=== PATIENT | male | born 1955 | race Caucasian/White ===

== ENCOUNTER → 2016-08-20 | Outpatient (CLI) | payer MEDICAID ==
[2016-08-20 07:42] LABS: Basophils % (A) 1 %; CH 29.8; CHCM 32.4; Eosinophils # (A) 0.2 k/uL (0-0.7); Eosinophils % (A) 3 %; HCT 42.5 % (39.0-53.0); HDW 2.25; HGB 13.6 gm/dL (13.0-17.5); Luc # (Auto) 0.16; Luc % (Auto) 3; Lymphocytes # (A) 1.4 k/uL (1.0-4.8); Lymphocytes % (A) 22 %; MCH 29.7 pg (25.0-35.0); MCHC 32.1 g/dL (31.0-37.0); MCV 92.4 fL (80.0-100.0); Mean Platelet Volume 6.3; Monocytes # (A) 0.4 k/uL (0-1.0); Monocytes % (A) 7 %; Neutrophils # (A) 4.2 k/uL (1.3-7.7); Neutrophils % (A) 66 %; RDW 13.4 % (11.5-15.5); WBC 6.3 k/uL (3.8-10.6); WBC (Perox) 6.84
[2016-08-20 07:51] LABS: ALT 38 U/L (21-72); AST 23 U/L (17-59); Alkaline Phosphatase 102 U/L (38-126); Anion Gap 6 mmol/L; Blood Urea Nitrogen 22 mg/dL (9-20); Carbon Dioxide 30 mmol/L (22-30); Chloride 104 mmol/L (98-107); Cholesterol 158 mg/dL (<200); Glucose 148 mg/dL (74-99); HDL Cholesterol 42 mg/dL (40-60); Non-African American GFR(MDRD) >60 (>60 ml/min/1.73 sqM); Potassium 4.6 mmol/L (3.5-5.1); Sodium 140 mmol/L (137-145); Total Bilirubin 0.4 mg/dL (0.2-1.3); Total Protein 6.7 g/dL (6.3-8.2); Triglycerides 86 mg/dL (<150)
[2016-08-20 08:39] LABS: Hepatitis C Virus IgG Ab Negative (Negative); Hepatitis C Virus IgG Index 0.08
== END | disposition home or self-care (01) ==
LOC: LABWHC1 06:53
PROVIDERS: ATTEND Internal Medicine
DX: E78.5 Hyperlipidemia, unspecified (principal); E11.9 Type 2 diabetes mellitus without complications; Z13.9 Encounter for screening, unspecified
CPT/HCPCS: 36415; 80053; 80061; 85025; 86803

== ENCOUNTER → 2017-04-01 | Outpatient (CLI) | payer MEDICAID ==
[2017-04-01 07:56] LABS: Blood Urea Nitrogen 31 mg/dL (9-20)
== END | disposition home or self-care (01) ==
LOC: LABWHC1 06:34
PROVIDERS: ATTEND Nurse Practitioner Family
DX: Z01.812 Encounter for preprocedural laboratory examination (principal); H93.19 Tinnitus, unspecified ear; H91.90 Unspecified hearing loss, unspecified ear
CPT/HCPCS: 36415; 82565; 84520

== ENCOUNTER → 2017-04-02 | Outpatient (CLI) | payer MEDICAID ==
--- NOTE | 2017-04-02 08:07 | MR ---
EXAMINATION TYPE: MR brain and iac wo/w con DATE OF EXAM: 04/02/2017 7:57 AM COMPARISON: NONE HISTORY: Tinnitus. TECHNIQUE: Multiplanar, multiecho imaging of the brain was obtained with and without intravenous adm inistration of 9 mL intravenous Gadavist. FINDINGS: Midline structures are unremarkable. There is a normal craniocervical junction. Echoplanar diffusion imaging is normal. There are normal vascular flow voids. The orbits appear normal. High-resolution imaging through the posterior fossa exquisitely demonstrates the seventh 8th nerve co mplex without evidence of a CP angle mass lesion or intracanalicular acoustic schwannoma. There are scattered high signal lesions throughout the deep white matter tracts and subcortical white matter of both cerebral hemispheres, slightly greater on the right than the left. These number over 20. The largest lesion is in the subcortical white matter of the waddell radiata on the right and jose ures 7.2 mm. There is no mass effect, midline shift or intracranial blood. Following intravenous administration of gadolinium, I do not see evidence of abnormal enhancement. Sp ecifically, I do not see evidence of abnormal enhancement in the internal auditory canals. IMPRESSION: 1. NO EVIDENCE OF A CP ANGLE MASS LESION OR INTRACANALICULAR ACOUSTIC SCHWANNOMA. 2. NUMEROUS SUBCORTICAL AND DEEP WHITE MATTER FLAIR LESIONS. THESE ARE NONSPECIFIC. A DIFFERENTIAL DI AGNOSIS INCLUDES DEMYELINATION, SMALL VESSEL DISEASE, MIGRAINE HEADACHES, HYPERTENSION AND LYME'S DIS EASE.
== END | disposition home or self-care (01) ==
LOC: RADMRIMAIN 07:07
PROVIDERS: ATTEND Otolaryngology
DX: H93.19 Tinnitus, unspecified ear (principal); G93.9 Disorder of brain, unspecified; H90.42 Sensorineural hearing loss, unilateral, left ear, with unrestricted hearing on the contralateral side
CPT/HCPCS: 70553; A9581

== ENCOUNTER → 2017-04-27 | Outpatient (CLI) | payer MEDICAID ==
[2017-04-27 07:57] LABS: Partial Thromboplastin Time 25.5 sec (22.0-30.0); Prothrombin Time 9.9 sec (9.0-12.0)
[2017-04-27 12:16] LABS: Cardiolipin Ab IgG Interp NEGATIVE (NEGATIVE); Cardiolipin IgA Antibody <0.5 U/mL
[2017-04-27 12:18] LABS: Cardiolipin Ab IgM Interp NEGATIVE (NEGATIVE)
[2017-04-28 12:03] LABS: APTT 48 Sec(s) (<43); APTT 1:1 Mix 41 Sec(s) (<43); Dilute Russell Viper Venom 42 Sec(s) (<44)
[2017-04-29 09:29] LABS: Lyme IgG/IgM 0.1 Index
== END | disposition home or self-care (01) ==
LOC: LABWHC1 07:00
PROVIDERS: ATTEND Psychiatry & Neurology Neurology
DX: I63.9 Cerebral infarction, unspecified (principal)
CPT/HCPCS: 36415; 83090; 84439; 84443; 85610; 85613; 85652; 85730; 85732; 86038; 86147; 86618

== ENCOUNTER → 2017-05-09 | Outpatient (CLI) | payer MEDICAID ==
--- NOTE | 2017-05-09 11:05 | MR ---
EXAMINATION TYPE: MR angio head wo/neck wo/w con DATE OF EXAM: 05/09/2017 COMPARISON: 07/29/2015 and 04/02/2016 HISTORY: Cerebral aneurysm, nonruptured, stroke TECHNIQUE: Time of flight images focusing on the Andreafski of [place] were performed without contrast.. 2-D and 3-D postprocessing imaging is performed. FINDINGS: 1. The previously questioned small aneurysm at the bifurcation the left MCA is not evident on today's examination and likely represented and acute angle of the bifurcation with tortuous vasculature. Cir henna of [place] is intact incomplete. Right vertebral artery is dominant. No evidence of arteriovenous fistula or developmental venous abnormality is identified. There is redemonstration of a small right anterior middle cranial fossa structure appearing cystic on the prior CT and likely representing a sm all arachnoid cyst. This is a benign finding. The carotid arteries demonstrate no evidence of hemodynamically significant stenosis within either co mmon carotid artery, visualized external carotid artery, or internal carotid artery. No evidence of v ascular occlusion or dissection is seen. There is a normal branch pattern of the great vessels from t he aortic arch. Vertebral arteries are patent. IMPRESSION: No evidence of vascular occlusion, hemodynamically significant stenosis, or aneurysm with in the head or neck. The previously questioned left MCA trifurcation small aneurysm likely relates to tortuosity of the vasculature and acute angles.
== END | disposition home or self-care (01) ==
LOC: RADMRIMAIN 09:34
PROVIDERS: ATTEND Psychiatry & Neurology Neurology
DX: I67.1 Cerebral aneurysm, nonruptured (principal); I63.30 Cerebral infarction due to thrombosis of unspecified cerebral artery; R93.8 Abnormal findings on diagnostic imaging of other specified body structures
CPT/HCPCS: 70544; 70549; A9581

== ENCOUNTER → 2019-08-30 | Outpatient (CLI) | payer MEDICARE ==
[2019-08-30 08:45] LABS: Basophils % (A) 0 %; Eosinophils # (A) 0.2 k/uL (0-0.7); Eosinophils % (A) 3 %; HCT 43.1 % (39.0-53.0); HGB 14.1 gm/dL (13.0-17.5); Lymphocytes # (A) 1.7 k/uL (1.0-4.8); Lymphocytes % (A) 20 %; MCH 30.3 pg (25.0-35.0); MCHC 32.7 g/dL (31.0-37.0); MCV 92.6 fL (80.0-100.0); Mean Platelet Volume 6.8; Monocytes # (A) 0.5 k/uL (0-1.0); Monocytes % (A) 5 %; Neutrophils # (A) 5.9 k/uL (1.3-7.7); Neutrophils % (A) 69 %; Platelet Count 279 k/uL (150-450); RBC 4.65 m/uL (4.30-5.90); RDW 12.8 % (11.5-15.5); WBC 8.6 k/uL (3.8-10.6)
[2019-08-30 08:58] LABS: Appearance,Urine Clear (Clear); Bilirubin,Urine Negative (Negative); Blood,Urine Negative (Negative); Color,Urine Yellow; Glucose,Urine (UA) 2+ (Negative); Ketones,Urine Negative (Negative); Leukocyte Esterase,Urine Negative (Negative); Nitrite,Urine Negative (Negative); PH, Urine 5.5 (5.0-8.0); Protein,Urine Trace (Negative); Specific Gravity,Urine 1.027 (1.001-1.035); Urobilinogen,Urine <2.0 mg/dL (<2.0)
[2019-08-30 16:48] LABS: African American GFR (CKD) 109.4 (60.0-200.0); Albumin 4.6 g/dL (3.80-4.90); Albumin/Globulin Ratio 2.42 (1.60-3.17); Calcium 9.6 mg/dL (8.7-10.3); Chol/HDL Ratio 4.13; Globulin 1.9 g/dL (1.6-3.3); Non-African American GFR(CKD) 94.4 (60.0-200.0); Potassium 5.2 mmol/L (3.5-5.5); Total Bilirubin 0.3 mg/dL (0.2-1.2); Total Protein 6.5 g/dL (6.2-8.2)
[2019-08-30 17:36] LABS: Hemoglobin A1C 7.7 % (4.0-6.0)
[2019-08-30 18:53] LABS: Urine Creatinine 110.3 mg/dL
== END | disposition home or self-care (01) ==
LOC: LABWHC1 07:33
PROVIDERS: ATTEND Internal Medicine
DX: E55.9 Vitamin D deficiency, unspecified (principal); Z12.5 Encounter for screening for malignant neoplasm of prostate; E11.9 Type 2 diabetes mellitus without complications; E78.5 Hyperlipidemia, unspecified
CPT/HCPCS: 36415; 80053; 80061; 81003; 82043; 82306; 82570; 83036; 84153; 85025

== ENCOUNTER → 2019-10-19 | Outpatient (CLI) | payer MEDICARE ==
--- NOTE | 2019-10-19 13:24 | US ---
EXAMINATION TYPE: US groin RT DATE OF EXAM: 10/19/2019 COMPARISON: NONE CLINICAL HISTORY: K40.90 Unilateral ingunal hernia without obstruction or gang. No ultrasound evidence of hernia by today's study. IMPRESSION: No visible hernias seen at this time.
--- NOTE | 2019-10-24 13:35 | P.ARTDOP ---
Arterial Doppler LOWER EXTREMITY ARTERIAL DOPPLER: DATE OF SERVICE: 10/16/2019 Reason for study: Leg cramping. Doppler waveforms: Multiphasic bilaterally throughout. Pulse volume recording: []. Pressure gradients: None. Ankle-brachial indices: Greater than 1 bilaterally. Toe brachial indices: 0.78 on the right, 0.77 on the left Impression: Normal study.
== END | disposition home or self-care (01) ==
LOC: RADUSWWP 12:15
PROVIDERS: ATTEND Family Medicine
DX: I73.9 Peripheral vascular disease, unspecified (principal); K40.90 Unilateral inguinal hernia, without obstruction or gangrene, not specified as recurrent
CPT/HCPCS: 93922

== ENCOUNTER → 2020-07-29 | Outpatient (CLI) | payer MEDICARE ==
[2020-07-29 16:02] LABS: Basophils # (A) 0.05 X 10*3/uL (0.00-0.10); Basophils % (A) 0.6 %; Eosinophils # (A) 0.23 X 10*3/uL (0.04-0.35); Eosinophils % (A) 2.8 %; HCT 46.2 % (39.6-50.0); HGB 14.4 g/dL (13.0-17.0); Lymphocytes # (A) 1.91 X 10*3/uL (0.90-5.00); Lymphocytes % (A) 23.4 %; MCH 28.6 pg (27.0-32.0); MCHC 31.2 g/dL (32.0-37.0); MCV 91.7 fL (80.0-97.0); Mean Platelet Volume 9.4 fL (9.5-12.2); Monocytes # (A) 0.69 X 10*3/uL (0.20-1.00); Monocytes % (A) 8.5 %; Neutrophils # (A) 5.25 X 10*3/uL (1.80-7.70); Neutrophils % (A) 64.5 %; Platelet Count 316 X 10*3/uL (140-440); RBC 5.04 X 10*6/uL (4.40-5.60); RDW 13.9 % (11.5-14.5); WBC 8.15 X 10*3/uL (4.50-10.00)
[2020-07-29 20:00] LABS: African American GFR (CKD) 108.6 (60.0-200.0); Albumin 4.7 g/dL (3.80-4.90); Albumin/Globulin Ratio 1.96 (1.60-3.17); Anion Gap 9.8 mmol/L (4.00-12.00); BUN/Creat Ratio 38.75 Ratio (12.00-20.00); Calcium 9.3 mg/dL (8.7-10.3); Carbon Dioxide 25.2 mmol/L (21.6-31.8); Chol/HDL Ratio 4.02; Globulin 2.4 g/dL (1.6-3.3); Non-African American GFR(CKD) 93.7 (60.0-200.0); Potassium 5.3 mmol/L (3.5-5.5); Total Bilirubin 0.4 mg/dL (0.2-1.2); Total Protein 7.1 g/dL (6.2-8.2)
[2020-07-29 20:08] LABS: PSA Annual Screen 0.7 ng/mL (0.0-4.0)
== END | disposition home or self-care (01) ==
LOC: LABWHC1 08:40
PROVIDERS: ATTEND Family Medicine
DX: Z12.5 Encounter for screening for malignant neoplasm of prostate (principal); E78.5 Hyperlipidemia, unspecified
CPT/HCPCS: 80061; 80053; 82550; 85025; 36415; G0103

== ENCOUNTER → 2021-03-02 | Outpatient (CLI) | payer MEDICARE ==
--- NOTE | 2021-03-02 12:32 | XR ---
Right foot HISTORY: R22.41 M67.471 Mass Right lateral dorsal,foot 3 views of the right foot Question some soft tissue prominence over the proximal fifth metatarsal region. There is hallux valgu s deformity, osteopenia arthritic change at the first digit. Some cystic lucency present at the proxi mal third and fourth metatarsal is questioned. Second and third digits are flexed. Correlate clinical ly. There is a small plantar calcaneal spur. Atherosclerotic vascular calcifications present. There i s spurring at the tibiotalar joint. IMPRESSION: Osteophytic changes, nonspecific findings described above. Plantar calcaneal spur. MRI ma y be of benefit as indicated.
== END | disposition home or self-care (01) ==
LOC: RADXRMAIN 10:23
PROVIDERS: ATTEND Podiatrist Foot Surgery
DX: M77.31 Calcaneal spur, right foot (principal); M25.774 Osteophyte, right foot

== ENCOUNTER → 2021-08-07 | Outpatient (CLI) | payer MEDICARE ==
[~2021-08-07] MED LIST: BEBTELOVIMAB (EUA) 175 MG/2 ML VIAL IV NR; SODIUM CHLORIDE 0.9% 500 ML 500 ML in EMPTY BAG 1 BAG IV PRN
[2021-08-07 13:48] VITALS: TEMP 98.3
[2021-08-07 14:02] VITALS: BP 112/56; PULSE 70; RESP 16
== END ==
LOC: PROCWHC3 12:54
PROVIDERS: ATTEND Nurse Practitioner Adult Health
DX: U07.1 COVID-19 (principal); E66.9 Obesity, unspecified; E11.9 Type 2 diabetes mellitus without complications; Z68.27 Body mass index [BMI] 27.0-27.9, adult; Z88.5 Allergy status to narcotic agent
CPT/HCPCS: Q0222; M0222; 96374

== ENCOUNTER → 2021-08-26 | Outpatient (CLI) | payer MEDICARE ==
[2021-08-26 14:30] LABS: Basophils # (A) 0.04 X 10*3/uL (0.00-0.10); Basophils % (A) 0.6 %; Eosinophils # (A) 0.15 X 10*3/uL (0.04-0.35); Eosinophils % (A) 2.2 %; HCT 40.7 % (39.6-50.0); HGB 12.8 g/dL (13.0-17.0); Immature Grans, Automated 0.7 %; Lymphocytes % (A) 26.9 %; MCHC 31.4 g/dL (32.0-37.0); MCV 92.3 fL (80.0-97.0); Mean Platelet Volume 9.4 fL (9.5-12.2); Monocytes # (A) 0.53 X 10*3/uL (0.20-1.00); Monocytes % (A) 7.9 %; NRBC Per 100 WBC 0 /100 WBCS (0.0-0.0); Neutrophils # (A) 4.11 X 10*3/uL (1.80-7.70); Neutrophils % (A) 61.7 %; Platelet Count 248 X 10*3/uL (140-440); RBC 4.41 X 10*6/uL (4.40-5.60); RDW 13.2 % (11.5-14.5); WBC 6.68 X 10*3/uL (4.50-10.00)
[2021-08-26 15:29] LABS: ALT 30 U/L (10-49); AST 20 U/L (14-35); African American GFR (CKD) 119.7 (60.0-200.0); Albumin 4.1 g/dL (3.8-4.9); Albumin/Globulin Ratio 1.75 (1.60-3.17); Alkaline Phosphatase 102 U/L (41-126); BUN/Creat Ratio 30.55 Ratio (12.00-20.00); Calcium 9.1 mg/dL (8.7-10.3); Carbon Dioxide 27.3 mmol/L (20.0-27.5); Chloride 100 mmol/L (96-109); Chol/HDL Ratio 4.22 Ratio; Creatine Kinase 52 U/L (35-257); Globulin 2.3 g/dL (1.6-3.3); Glucose 209 mg/dL (70-110); LDL Cholesterol,Calculated 148.4 mg/dL (0.0-131.0); Non-African American GFR(CKD) 103.2 (60.0-200.0); Potassium 5.2 mmol/L (3.5-5.5); Sodium 144 mmol/L (135-145); Total Protein 6.4 g/dL (6.2-8.2)
== END | disposition home or self-care (01) ==
LOC: LABWHC1 09:31
PROVIDERS: ATTEND Nurse Practitioner Adult Health
DX: Z12.5 Encounter for screening for malignant neoplasm of prostate (principal); E78.5 Hyperlipidemia, unspecified
CPT/HCPCS: 36415; 80053; 80061; 82550; 84153; 85025

== ENCOUNTER → 2022-02-01 | Outpatient (CLI) | payer MEDICARE ==
--- NOTE | 2022-02-01 07:29 | US ---
EXAMINATION TYPE: US duplex aorta DATE OF EXAM: 02/01/2022 COMPARISON: NONE CLINICAL HISTORY: Z13.6 ENCOUNTER FOR SCREENING FOR CARDIOVASCULAR D. TECHNIQUE: Multiple sonographic images of the abdominal aorta are obtained. FINDINGS: EXAM MEASUREMENTS: Abdominal Aorta: Proximal: 2.5 x 2.4 cm Mid: 1.7 x 2.2 cm Distal: 1.9 x 2.2 cm Bifurcation: rt, 16. x 1.5 cm 1.5 x 1.7 cm LADLE FILLER NOTES: Normal caliber , heavily calcified aorta. Aorta is successfully visualized through the bifurcation. IMPRESSION: No ultrasound evidence for greater than 3.0 cm AAA aerated
== END | disposition home or self-care (01) ==
LOC: RADUSWWP 06:45
PROVIDERS: ATTEND Family Medicine
DX: Z13.6 Encounter for screening for cardiovascular disorders (principal)
CPT/HCPCS: 93979

== ENCOUNTER → 2024-03-02 | Outpatient (CLI) | payer MEDICARE ==
--- NOTE | 2024-03-03 11:51 | PE ---
EXAMINATION TYPE: PET CT fusion skull to thigh DATE OF EXAM: 03/02/2024 CLINICAL INDICATION:Male, 68 years old with history of R91.8 lung mass; TECHNIQUE: Following the intravenous administration of 9.13 mCi of F-18 FDG, whole body images are performed from the skull base to the midthigh. Images are reviewed on the computer in the coronal, a xial, and sagittal planes. Reconstructed rotating images are created on independent workstation and reviewed on the computer. A non-contrast CT is performed in conjunction with the PET scan. Glucose level was 7 mg/dL CT DLP: 766 mGycm, Automated exposure control for dose reduction was used. COMPARISON: CT 01/23/2024, PET/CT None, MRI: None FINDINGS: Mediastinal SUV mean is 1.9. Hepatic parenchyma SUV mean is 2.. SKULL BASE AND NECK: * No suspicious radiotracer activity. CHEST, MEDIASTINUM, AND HILAR REGION: Decreased size of findings within the chest including the right upper lung and right middle lobe. * Right upper lung streaky consolidation max SUV 2.5. * Right middle lobe streaky consolidation max SUV 2.9 ABDOMEN AND PELVIS: No suspicious radiotracer activity. MUSCULOSKELETAL STRUCTURES: No suspicious radiotracer activity. OTHER CT: Coronary atherosclerosis. Sequential bladder wall thickening. The prostate gland isn't enlarged with calcifications. Mild atrop hic kidneys bilaterally. Coronary artery atherosclerosis. IMPRESSION: 1. Decreasing size of Right upper and middle lobe pulmonary somewhat streaky consolidation with mild uptake findings could represent atelectasis and/or sequela prior infection seen on 01/23/2024.. Short -term follow-up surveillance CT chest recommended in 3-6 months. 2. Circumference of bladder wall thickening correlate with urinalysis for cystitis. Findings could b e secondary to chronic bladder obstruction from prostatomegaly. [facility], , 03/03/2024 11:49 AM
== END | disposition home or self-care (01) ==
LOC: RADPETMAIN 11:41
PROVIDERS: ATTEND Internal Medicine
DX: R91.8 Other nonspecific abnormal finding of lung field (principal); I25.10 Atherosclerotic heart disease of native coronary artery without angina pectoris; N26.1 Atrophy of kidney (terminal)
CPT/HCPCS: 78815; A9552

== ENCOUNTER → 2024-09-12 | Outpatient (CLI) | payer MEDICARE ==
--- NOTE | 2024-09-13 08:18 | US ---
EXAMINATION TYPE: US arterial LE multi level DATE OF EXAM: 09/12/2024 4:15 PM COMPARISONS: 10/18/2019 CLINICAL INDICATION: Male, 68 years old with history of R25.2 CRAMP AND SPASM; Calf cramping worsenin g TECHNIQUE: Systolic pressures were taken of the upper and lower extremity arteries with ankle-brachia l indices and toe brachial indices calculated bilaterally. History of: Smoker: Yes Hypertension: No Diabetic: Yes Hyperlipidemia: Yes TIA/CVA: No Previous Vascular Surgery: BLE Vein stripping CAD: No NV: No Vascular Ulcers: No Claudication: Yes Gangrene: No FINDINGS: Doppler Waveforms: Right: Multiphasic Left: Multiphasic Pulse Volume Recording: Pressure Gradients: Brachial Artery systolic pressure: Right: 116 Left: 109 Posterior Tibial artery systolic pressure: Right: CNO Left: CNO Dorsalis Pedis artery systolic pressure: Right: CNO Left: CNO Toe artery systolic pressure: Right: 112 Left: 105 Ankle-Brachial Indices: Right: Unable to obtain. Left: 1.54 Toe Brachial Indices: Right: 0.97 Left: 0.91 (Normal > 0.6; Mild 0.35 - 0.59, Moderate 0.12 - 0.34, Severe <0.12) IMPRESSION: 1. No focal stenosis based on ratios. 2. Somewhat limited examination with some vessels noncompressible or with elevated velocities. [facility], , 09/13/2024 8:16 AM
== END | disposition home or self-care (01) ==
LOC: RADUSWWP 15:29
PROVIDERS: ATTEND Family Medicine
DX: R25.2 Cramp and spasm (principal); I10 Essential (primary) hypertension; E11.51 Type 2 diabetes mellitus with diabetic peripheral angiopathy without gangrene
CPT/HCPCS: 93923